=== PATIENT | male | born 1985 | race Caucasian/White ===

== ENCOUNTER 2016-08-31 15:14 | Inpatient (IN) | payer OTHER ==
[~2016-08-31] VITALS: Ht 182.9 cm; Wt 172.1 kg
--- NOTE | ~2016-08-31 | CON ---
[place], [place] REPORT OF CONSULTATION [id number] UN[facility] #: [id number] ROOM: 427 DOCTOR: ASHLEY GONZALEZ MD BIRTHDATE: [birth year] DOS: 09/01/2016 HISTORY OF PRESENT ILLNESS: The patient is a 30-year-old gentleman admitted under hospitalist service, seen at their request. The patient was admitted last night with a swelling on the right groin which was moderately painful; however, without any fever or without any throbbing pain. No history of a difficulty, no dysuria, no hematuria. The swelling in the right upper half of the scrotum is subcutaneous. Pain only during the time the patient is trying to get out of the bed or trying to walk. No such similar condition in the past. The patient not diabetic. PHYSICAL EXAMINATION: GENERAL: On examination, alert, oriented and not in any distress whatsoever. VITAL SIGNS: Stable. He is afebrile. LOCAL EXAMINATION: Show there is no swelling or edema of the scrotum; however, there is induration on the right upper portion of the scrotal wall, size approximately is 3-4 cm in greatest diameter. It is tender and there is a very small area less than a centimeter of slight softness but no fluctuation. The skin over this swelling is moderately indurated but not edematous or red or erythematous. The examination suggests the cellulitis with possibility of developing an abscess right at the center of the swelling. The both testes are normal. Digital exam is deferred. ASSESSMENT: Cellulitis, right hemiscrotum with the possibility of a subcutaneous abscess formation. PLAN: Advised to continue the antibiotics, IV fluids, warm compresses and the patient will be scheduled tomorrow for incision and drainage of possible abscess of the scrotal skin and scrotal wall. The patient will be kept n.p.o. after midnight and he is scheduled for a procedure in the morning. ASHLEY GONZALEZ MD CM:CONSTR:REPORT OF CONSULTATION 2136 09/02/16 0448 interface
[~2016-08-31 15:14] MED LIST: 'PARAFON FORTE500 M1 PO; ADDERALL XR 3030 MG PO; AMOXICILLIN500 M2 PO; AMOXICILLIN500 MG PO; AUGMENTIN 875875 MG PO; BACTRIM DS 8001 TA1 PO; CATAFLAM50 MG PO; CEPHALEXIN500 M1 PO; CIPRO250 MG PO; CIPRODEX 0.3%-7.5 ML OT; CLARITIN10 MG PO; DOXYCYCLINE100 M3 PO; FISH OIL EC 1,1 EACH PO; FLEXERIL10 MG PO; FLONASE 0.05% 121 EA NAS; GEMFIBROZIL600 MG PO; HYDROCODONE BIT1 T11 PO; KEFLEX500 MG PO; LISINOPRIL10 M1 PO; LISINOPRIL5 MG PO; LOMOTIL 0.025 M1 TA1 PO; LOPID600 M1 PO; METFORMIN HYDR500 M1 PO; METFORMIN500 MG PO; MIRAPEX PO; MOTRIN800 MG PO; NAPROSYN500 MG PO; NKHM; NORCO 325 MG-51 TAB PO; OMEPRAZOLE40 MG PO; PERCOCET 325 MG1 TA2 PO; PRAVACHOL40 MG PO; PREDNICOT20 MG PO; PROTONIX40 MG PO; PROVENTIL0.09 MG/A1 INH; PROZAC10 MG PO; RESTLESS LEG; ROBITUSSIN AC 110 ML PO; TOPROL XL25 MG PO; TORADOL10 MG PO; TRAZODONE100 MG PO; ULTRAM50 MG PO; VICODIN 5/500 505 MG PO; VITAMIN D50000 I3 PO; ZESTRIL5 MG PO; ZOFRAN ODT4 MG SL; ZOFRAN4 MG PO; ZOLOFT25 MG PO; ZYRTEC10 MG PO
[2016-08-31] MEDS ORDERED: METFORMIN1000 MG PO (15:25)
[2016-08-31] MEDS ORDERED: PROZAC10 MG PO (15:25)
[2016-08-31 15:26] VITALS: BP 102/58
[2016-08-31] MEDS ORDERED: PROTONIX TR40 M1 PO (15:26)
[2016-08-31 15:54] LABS: BASO # 0.1 10*3/uL (0.0-0.1); BASO % 0.7 % (0.0-1.0); EOS # 0.4 10*3/uL (0.0-0.4); EOS % 3.3 % (1.0-4.0); HEMATOCRIT 41.1 % (42.0-52.0); HEMOGLOBIN 13.8 g/dl (14.0-18.0); LYMPH # 1.8 10*3/uL (1.3-4.4); LYMPH % 16.6 % (27.0-41.0); MEAN CELL VOLUME 83.5 fl (80.0-94.0); MEAN CORPUSCULAR HGB CONC 33.6 g/dl (33.0-37.0); MEAN PLATELET VOLUME 9.2 fl (9.6-12.3); MONO # 0.9 10*3/uL (0.1-1.0); MONO % 7.9 % (3.0-9.0); NEUT # 7.8 10*3/uL (2.3-7.9); NEUT % 71.2 % (47.0-73.0); PLATELET COUNT AUTOMATED 250 10*3/uL (130-400); RED BLOOD COUNT 4.92 10*6/uL (4.50-5.90); RED CELL DISTRI WIDTH 13.4 % (0-14.5)
[2016-08-31 16:10] LABS: ALBUMIN 3.3 gm/dl (3.1-4.5); ALKALINE PHOSPHATASE 111 U/L (45-117); BILIRUBIN, TOTAL 0.4 mg/dl (0.2-1.0); BUN 10 mg/dl (7-24); CARBON DIOXIDE 24 mmol/L (21-32); CHLORIDE 104 mmol/L (98-107); EST GLOM FILT AFRICAN AMERICAN > 60 ml/min; GLUCOSE 308 mg/dL (65-99); POTASSIUM 3.9 mmol/L (3.5-5.1); SGOT/AST 27 IU/L (3-35); SGPT/ALT 47 U/L (12-78); SODIUM 137 mmol/L (136-145); TOTAL PROTEIN 7.3 gm/dL (6.4-8.2)
[2016-08-31 17:52] LABS: LA>2 REFLEX 2 HR DRAW NOW
[2016-08-31 18:04] LABS: LA>2 RFLX FOLLOW UP AT 2 HRS 2.3 mmol/L (0.4-2.0)
[2016-08-31 19:57] LABS: LA>2 REFLEX 4 HR DRAW NOW
[2016-08-31 20:42] VITALS: BP 140/72
[2016-08-31 21:50] VITALS: BP 154/68
[2016-08-31] MEDS ORDERED: MIRAPEX1 MG PO (22:03)
[2016-09-01] VITALS: BP 139/58; BP 139/78
[2016-09-01 00:28] LABS: CKMB 0.6 ng/ml (0.5-3.6); CPK 104 U/L (39-308)
[2016-09-01 00:30] LABS: TROPONIN I < 0.015 ng/ml (<0.045)
[2016-09-01 06:43] LABS: BASO # 0.1 10*3/uL (0.0-0.1); BASO % 0.8 % (0.0-1.0); EOS # 0.3 10*3/uL (0.0-0.4); HEMATOCRIT 35.8 % (42.0-52.0); LYMPH # 2.1 10*3/uL (1.3-4.4); LYMPH % 27.7 % (27.0-41.0); MEAN CELL VOLUME 83.6 fl (80.0-94.0); MEAN CORPUSCULAR HGB CONC 33.5 g/dl (33.0-37.0); MONO # 0.7 10*3/uL (0.1-1.0); NEUT # 4.4 10*3/uL (2.3-7.9); PLATELET COUNT AUTOMATED 201 10*3/uL (130-400); RED BLOOD COUNT 4.28 10*6/uL (4.50-5.90); RED CELL DISTRI WIDTH 13.3 % (0-14.5); WHITE BLOOD COUNT 7.6 10*3/uL (4.8-10.8)
[2016-09-01 06:51] LABS: CKMB 0.7 ng/ml (0.5-3.6); CPK 83 U/L (39-308)
[2016-09-01 06:53] LABS: TROPONIN I < 0.015 ng/ml (<0.045)
[2016-09-01 07:27] LABS: BUN 9 mg/dl (7-24); CARBON DIOXIDE 24 mmol/L (21-32); CHLORIDE 112 mmol/L (98-107); EST GLOM FILT AFRICAN AMERICAN > 60 ml/min; GLUCOSE 135 mg/dL (65-99); POTASSIUM 3.8 mmol/L (3.5-5.1); SODIUM 145 mmol/L (136-145)
[2016-09-01 08:00] VITALS: BP 151/101
[2016-09-01 12:00] VITALS: BP 137/79
[2016-09-01 12:26] LABS: CKMB 1.1 ng/ml (0.5-3.6); CPK 98 U/L (39-308)
[2016-09-01 12:29] LABS: TROPONIN I < 0.015 ng/ml (<0.045)
[2016-09-01 16:00] VITALS: BP 160/110
[2016-09-01 20:00] VITALS: BP 122/77
[2016-09-02] VITALS: BP 149/72
[2016-09-02 05:56] LABS: BASO % 0.4 % (0.0-1.0); EOS # 0.3 10*3/uL (0.0-0.4); EOS % 3.6 % (1.0-4.0); HEMATOCRIT 36.7 % (42.0-52.0); HEMOGLOBIN 12.5 g/dl (14.0-18.0); LYMPH # 1.7 10*3/uL (1.3-4.4); LYMPH % 18.7 % (27.0-41.0); MEAN CELL VOLUME 83.2 fl (80.0-94.0); MEAN CORPUSCULAR HGB 28.3 pg (27.0-31.0); MEAN CORPUSCULAR HGB CONC 34.1 g/dl (33.0-37.0); MEAN PLATELET VOLUME 8.9 fl (9.6-12.3); MONO # 0.7 10*3/uL (0.1-1.0); MONO % 7.8 % (3.0-9.0); NEUT # 6.4 10*3/uL (2.3-7.9); NEUT % 69.4 % (47.0-73.0); PLATELET COUNT AUTOMATED 223 10*3/uL (130-400); RED BLOOD COUNT 4.41 10*6/uL (4.50-5.90); RED CELL DISTRI WIDTH 13.2 % (0-14.5); WHITE BLOOD COUNT 9.2 10*3/uL (4.8-10.8)
[2016-09-02 06:21] LABS: PROTHROMBIN TIME 10.5 SECONDS (9.0-12.4)
[2016-09-02 07:26] VITALS: BP 139/78
[2016-09-02 08:00] VITALS: BP 132/81
[2016-09-02 12:00] VITALS: BP 147/83
[2016-09-02] MEDS ORDERED: BACTRIM DS 8001 TA1 PO (12:18)
== END 2016-09-02 14:45 | disposition home or self-care (01) | DRG 872 ==
LOC: ED 15:14 → EDHOLD 20:59 → 4E 20:59
PROVIDERS: Internal Medicine; Internal Medicine Hospice and Palliative Medicine; Physician Assistant
DX: A41.9 Sepsis, unspecified organism (principal); E87.2 Acidosis; E44.1 Mild protein-calorie malnutrition; Z68.43 Body mass index [BMI] 50.0-59.9, adult; E11.65 Type 2 diabetes mellitus with hyperglycemia; I10 Essential (primary) hypertension; R65.20 Severe sepsis without septic shock; N49.2 Inflammatory disorders of scrotum; I45.6 Pre-excitation syndrome; E66.01 Morbid (severe) obesity due to excess calories; E78.5 Hyperlipidemia, unspecified; E83.51 Hypocalcemia; E87.8 Other disorders of electrolyte and fluid balance, not elsewhere classified; D64.9 Anemia, unspecified; F17.200 Nicotine dependence, unspecified, uncomplicated; Z82.49 Family history of ischemic heart disease and other diseases of the circulatory system; Z79.51 Long term (current) use of inhaled steroids; Z79.84 Long term (current) use of oral hypoglycemic drugs; Z79.899 Other long term (current) drug therapy; Z83.3 Family history of diabetes mellitus; Z82.3 Family history of stroke; Z71.6 Tobacco abuse counseling

== ENCOUNTER 2016-09-10 10:20 | Emergency (ER) | payer OTHER ==
[~2016-09-10] VITALS: Ht 182.8 cm; Wt 169.6 kg
[~2016-09-10 10:20] MED LIST changes: +METFORMIN1000 MG PO; +MIRAPEX1 MG PO; +PROTONIX TR40 M1 PO
[2016-09-10 11:02] LABS: BASO # 0.1 10*3/uL (0.0-0.1); BASO % 0.6 % (0.0-1.0); EOS # 0.2 10*3/uL (0.0-0.4); EOS % 2.2 % (1.0-4.0); HEMATOCRIT 41.9 % (42.0-52.0); HEMOGLOBIN 14.5 g/dl (14.0-18.0); LYMPH # 1.7 10*3/uL (1.3-4.4); LYMPH % 17.9 % (27.0-41.0); MEAN CELL VOLUME 81.7 fl (80.0-94.0); MEAN CORPUSCULAR HGB 28.3 pg (27.0-31.0); MEAN CORPUSCULAR HGB CONC 34.6 g/dl (33.0-37.0); MEAN PLATELET VOLUME 8.9 fl (9.6-12.3); MONO # 0.7 10*3/uL (0.1-1.0); MONO % 7.2 % (3.0-9.0); NEUT # 6.7 10*3/uL (2.3-7.9); NEUT % 71.8 % (47.0-73.0); PLATELET COUNT AUTOMATED 290 10*3/uL (130-400); RED BLOOD COUNT 5.13 10*6/uL (4.50-5.90); RED CELL DISTRI WIDTH 13.7 % (0-14.5); WHITE BLOOD COUNT 9.3 10*3/uL (4.8-10.8)
[2016-09-10 11:12] LABS: BUN 11 mg/dl (7-24); CARBON DIOXIDE 21 mmol/L (21-32); CHLORIDE 102 mmol/L (98-107); EST GLOM FILT AFRICAN AMERICAN > 60 ml/min; GLUCOSE 228 mg/dL (65-99); SODIUM 134 mmol/L (136-145)
== END 2016-09-10 12:43 | disposition home or self-care (01) ==
LOC: ED 10:20
PROVIDERS: Emergency Medicine
DX: N50.89 Other specified disorders of the male genital organs (principal); N50.82 Scrotal pain; F17.200 Nicotine dependence, unspecified, uncomplicated; F12.10 Cannabis abuse, uncomplicated; I10 Essential (primary) hypertension; E78.5 Hyperlipidemia, unspecified; E11.9 Type 2 diabetes mellitus without complications

== ENCOUNTER 2016-09-12 13:02 | Emergency (ER) | payer OTHER ==
[~2016-09-12] VITALS: Wt 169.6 kg
[2016-09-12 14:09] LABS: BASO # 0.1 10*3/uL (0.0-0.1); BASO % 0.6 % (0.0-1.0); EOS # 0.2 10*3/uL (0.0-0.4); EOS % 1.9 % (1.0-4.0); HEMATOCRIT 41.5 % (42.0-52.0); HEMOGLOBIN 14.3 g/dl (14.0-18.0); IG # 0.1 10*3/uL (0.0-0.1); LYMPH # 1.8 10*3/uL (1.3-4.4); LYMPH % 15.4 % (27.0-41.0); MEAN CELL VOLUME 82.5 fl (80.0-94.0); MEAN CORPUSCULAR HGB 28.4 pg (27.0-31.0); MEAN CORPUSCULAR HGB CONC 34.5 g/dl (33.0-37.0); MEAN PLATELET VOLUME 9.2 fl (9.6-12.3); MONO # 0.9 10*3/uL (0.1-1.0); MONO % 7.2 % (3.0-9.0); NEUT # 8.9 10*3/uL (2.3-7.9); NEUT % 74.5 % (47.0-73.0); PLATELET COUNT AUTOMATED 283 10*3/uL (130-400); RED BLOOD COUNT 5.03 10*6/uL (4.50-5.90); RED CELL DISTRI WIDTH 13.6 % (0-14.5); WHITE BLOOD COUNT 11.9 10*3/uL (4.8-10.8)
[2016-09-12 14:24] LABS: ALBUMIN 3.6 gm/dl (3.1-4.5); BILIRUBIN, TOTAL 0.3 mg/dl (0.2-1.0); BUN 10 mg/dl (7-24); CARBON DIOXIDE 26 mmol/L (21-32); CHLORIDE 100 mmol/L (98-107); EST GLOM FILT AFRICAN AMERICAN > 60 ml/min; GLUCOSE 222 mg/dL (65-99); POTASSIUM 4.1 mmol/L (3.5-5.1); SGOT/AST 28 IU/L (3-35); SGPT/ALT 41 U/L (12-78); SODIUM 135 mmol/L (136-145); TOTAL PROTEIN 8.2 gm/dL (6.4-8.2)
[2016-09-12 14:40] LABS: ALKALINE PHOSPHATASE 124 U/L (45-117)
== END 2016-09-12 21:38 | disposition short-term general hospital (02) ==
LOC: ED 13:02
PROVIDERS: Nurse Practitioner Family
DX: A41.9 Sepsis, unspecified organism (principal); N49.2 Inflammatory disorders of scrotum; R73.9 Hyperglycemia, unspecified; I10 Essential (primary) hypertension; E11.9 Type 2 diabetes mellitus without complications; F17.200 Nicotine dependence, unspecified, uncomplicated; E78.5 Hyperlipidemia, unspecified; Z79.899 Other long term (current) drug therapy

== ENCOUNTER 2016-10-22 00:09 | Emergency (ER) | payer OTHER ==
[~2016-10-22] VITALS: Ht 182.8 cm; Wt 169.6 kg
[2016-10-22 01:32] LABS: BASO # 0.1 10*3/uL (0.0-0.1); BASO % 0.5 % (0.0-1.0); EOS # 0.2 10*3/uL (0.0-0.4); EOS % 1.7 % (1.0-4.0); HEMATOCRIT 38.2 % (42.0-52.0); LYMPH # 1.9 10*3/uL (1.3-4.4); MEAN CELL VOLUME 82.9 fl (80.0-94.0); MEAN CORPUSCULAR HGB 28.2 pg (27.0-31.0); MEAN PLATELET VOLUME 9.2 fl (9.6-12.3); MONO # 0.8 10*3/uL (0.1-1.0); MONO % 7.6 % (3.0-9.0); NEUT # 7.6 10*3/uL (2.3-7.9); PLATELET COUNT AUTOMATED 291 10*3/uL (130-400); RED BLOOD COUNT 4.61 10*6/uL (4.50-5.90); RED CELL DISTRI WIDTH 13.5 % (0-14.5); WHITE BLOOD COUNT 10.6 10*3/uL (4.8-10.8)
[2016-10-22 01:43] LABS: BUN 8 mg/dl (7-24); C-REACTIVE PROTEIN 4.03 MG/DL (0-0.3); CARBON DIOXIDE 27 mmol/L (21-32); CHLORIDE 103 mmol/L (98-107); EST GLOM FILT AFRICAN AMERICAN > 60 ml/min; GLUCOSE 229 mg/dL (65-99); POTASSIUM 3.7 mmol/L (3.5-5.1); SODIUM 139 mmol/L (136-145)
[2016-10-22 02:22] LABS: BILIRUBIN NEGATIVE (NEGATIVE); BLOOD TRACE-LYSED (NEGATIVE); CLARITY CLEAR (CLEAR); COLOR YELLOW (YELLOW); GLUCOSE 1+ (NEGATIVE); KETONE NEGATIVE (NEGATIVE); LEUKO ESTERASE NEGATIVE (NEGATIVE); NITRITE NEGATIVE (NEGATIVE); PH 5.5 (5.0-9.0); PROTEIN 2+ (NEGATIVE); UROBILINOGEN 0.2 E.U./dl (0.2-1.0)
[2016-10-22 02:35] LABS: BACTERIA 1+; EPITHELIAL CELLS 0-2; URINE REFLEX COMMENT NO (NO); WBC 0-2 wbc/hpf (0-5)
[2016-10-22 03:29] LABS: LA>2 REFLEX 2 HR DRAW NOW
== END 2016-10-22 03:50 | disposition short-term general hospital (02) ==
LOC: ED 00:09
PROVIDERS: Emergency Medicine Emergency Medical Services
DX: A41.9 Sepsis, unspecified organism (principal); E13.8 Other specified diabetes mellitus with unspecified complications; R82.71 Bacteriuria; N49.2 Inflammatory disorders of scrotum; E87.2 Acidosis; E78.5 Hyperlipidemia, unspecified; I10 Essential (primary) hypertension; F17.200 Nicotine dependence, unspecified, uncomplicated; Z79.899 Other long term (current) drug therapy

== ENCOUNTER → 2016-11-18 | Outpatient (CLI) | payer OTHER | END | disposition home or self-care (01) | LOC: RAD 12:26 | DX: M51.37 Other intervertebral disc degeneration, lumbosacral region (principal) ==

== ENCOUNTER 2017-05-15 08:28 | Emergency (ER) | payer OTHER ==
[~2017-05-15] VITALS: Wt 163.3 kg
[2017-05-15] MEDS ORDERED: AMOXICILLIN500 M2 PO (09:50)
== END 2017-05-15 10:40 | disposition home or self-care (01) ==
LOC: ED 08:28
DX: J02.0 Streptococcal pharyngitis (principal); F17.200 Nicotine dependence, unspecified, uncomplicated; F12.10 Cannabis abuse, uncomplicated; E78.5 Hyperlipidemia, unspecified; E66.01 Morbid (severe) obesity due to excess calories; E11.65 Type 2 diabetes mellitus with hyperglycemia; Z79.899 Other long term (current) drug therapy

== ENCOUNTER 2017-06-26 19:22 | Emergency (ER) | payer OTHER ==
[~2017-06-26] VITALS: Ht 182.8 cm; Wt 157.9 kg
[2017-06-26] MEDS ORDERED: Motrin,Rufen800 MG PO (20:17)
[2017-06-26] MEDS ORDERED: CLINDAMYCIN HC300 MG PO (20:17)
== END 2017-06-26 20:49 | disposition home or self-care (01) ==
LOC: ED 19:22
DX: K04.01 Reversible pulpitis (principal); K02.9 Dental caries, unspecified; E11.65 Type 2 diabetes mellitus with hyperglycemia; E66.01 Morbid (severe) obesity due to excess calories; I10 Essential (primary) hypertension; E78.00 Pure hypercholesterolemia, unspecified; F12.10 Cannabis abuse, uncomplicated; F17.200 Nicotine dependence, unspecified, uncomplicated; Z79.899 Other long term (current) drug therapy; Z98.890 Other specified postprocedural states

== ENCOUNTER 2017-09-02 12:41 | Emergency (ER) | payer OTHER ==
[~2017-09-02] VITALS: Ht 182.8 cm; Wt 157.4 kg
[~2017-09-02 12:41] MED LIST changes: +CLINDAMYCIN HC300 MG PO; +Motrin,Rufen800 MG PO
== END 2017-09-02 13:31 | disposition home or self-care (01) ==
LOC: ED 12:41
DX: S05.02XA Injury of conjunctiva and corneal abrasion without foreign body, left eye, initial encounter (principal); H10.9 Unspecified conjunctivitis; F17.200 Nicotine dependence, unspecified, uncomplicated; F12.10 Cannabis abuse, uncomplicated; Z98.890 Other specified postprocedural states; Z79.899 Other long term (current) drug therapy; X58.XXXA Exposure to other specified factors, initial encounter; Y93.89 Activity, other specified; Y92.89 Other specified places as the place of occurrence of the external cause; Y99.9 Unspecified external cause status

== ENCOUNTER 2017-10-13 17:34 | Emergency (ER) | payer OTHER ==
[~2017-10-13] VITALS: Ht 182.8 cm; Wt 99.8 kg
[2017-10-13] MEDS ORDERED: MEDROL DOSEPAK4 MG PO (19:23)
[2017-10-13] MEDS ORDERED: CYCLOBENZAPRINE10 MG PO (19:23)
[2017-10-13] MEDS ORDERED: NAPROSYN500 MG PO (19:23)
== END 2017-10-13 19:31 | disposition home or self-care (01) ==
LOC: ED 17:34
DX: S39.012A Strain of muscle, fascia and tendon of lower back, initial encounter (principal); F12.10 Cannabis abuse, uncomplicated; F17.200 Nicotine dependence, unspecified, uncomplicated; Z79.899 Other long term (current) drug therapy; X50.1XXA Overexertion from prolonged static or awkward postures, initial encounter; Y93.89 Activity, other specified; Y92.89 Other specified places as the place of occurrence of the external cause; Y99.9 Unspecified external cause status

== ENCOUNTER 2018-02-09 18:05 | Emergency (ER) | payer OTHER ==
[~2018-02-09] VITALS: Ht 182.8 cm; Wt 160.6 kg
--- NOTE | ~2018-02-09 | EKG ---
[place], [place] ELECTROCARDIOGRAM REPORT NAME: JESSICA HUNTER UNIT #: [id number] ROOM: DOCTOR: EPIPHANY DRAFT REPORT BIRTHDATE: [birth year] [facility] Test Date: 2018-02-09 Test Time: 18:58:16 Pat Name: JESSICA HUNTER Department: Room: Gender: M [employer] Work[employer]: DANA : 1985 Requested By: MONIKA WOOD PA-C Order Number: [id number] Reading MD: Manan Ledesma MD Measurements Intervals [place] Rate: 95 P: 30 NM: 173 QRS: 55 QRSD: 92 T: -76 QT: 347 QTc: 436 Interpretive Statements Sinus rhythm Borderline T abnormalities, diffuse leads No previous ECG available for comparison Electronically Signed On 02-11-2018 4:22:15 PDT by Manan Ledesma MD CM:EKGRPT:ELECTROCARDIOGRAM REPORT [id number] MONIKA WOOD PA-C EPIPHANY DRAFT REPORT MOINKA WOOD PA-C
[~2018-02-09 18:05] MED LIST changes: +CYCLOBENZAPRINE10 MG PO; +MEDROL DOSEPAK4 MG PO
[2018-02-09 19:02] LABS: BASO # 0.1 10*3/uL (0.0-0.1); EOS # 0.3 10*3/uL (0.0-0.4); EOS % 2.8 % (1.0-4.0); HEMATOCRIT 41.7 % (42.0-52.0); HEMOGLOBIN 14.7 g/dl (14.0-18.0); LYMPH # 2.3 10*3/uL (1.3-4.4); LYMPH % 23.9 % (27.0-41.0); MEAN CELL VOLUME 84.4 fl (80.0-94.0); MEAN CORPUSCULAR HGB 29.8 pg (27.0-31.0); MEAN CORPUSCULAR HGB CONC 35.3 g/dl (33.0-37.0); MEAN PLATELET VOLUME 9.1 fl (9.6-12.3); MONO # 0.8 10*3/uL (0.1-1.0); MONO % 8.6 % (3.0-9.0); NEUT % 63.5 % (47.0-73.0); PLATELET COUNT AUTOMATED 287 10*3/uL (130-400); RED BLOOD COUNT 4.94 10*6/uL (4.50-5.90); RED CELL DISTRI WIDTH 12.7 % (0-14.5); WHITE BLOOD COUNT 9.4 10*3/uL (4.8-10.8)
[2018-02-09 19:11] LABS: INTERNATIONAL NORM RATIO 0.9 (2.0-3.5)
[2018-02-09 19:20] LABS: ALBUMIN 3.4 gm/dl (3.1-4.5); ALKALINE PHOSPHATASE 110 U/L (45-117); BUN 18 mg/dl (7-24); CHLORIDE 104 mmol/L (98-107); CREATININE 1.03 mg/dL (0.70-1.30); LIPASE 239 U/L (73-393); SGOT/AST 33 IU/L (3-35); SGPT/ALT 51 U/L (12-78); SODIUM 139 mmol/L (136-145); TOTAL PROTEIN 7.5 gm/dL (6.4-8.2)
[2018-02-09 19:23] LABS: TROPONIN I < 0.015 ng/ml (<0.045)
== END 2018-02-09 20:27 | disposition home or self-care (01) ==
LOC: ED 18:05
PROVIDERS: Physician Assistant
DX: S93.402A Sprain of unspecified ligament of left ankle, initial encounter (principal); R55 Syncope and collapse; R42 Dizziness and giddiness; M25.562 Pain in left knee; F17.200 Nicotine dependence, unspecified, uncomplicated; Z79.899 Other long term (current) drug therapy; X58.XXXA Exposure to other specified factors, initial encounter; Y93.89 Activity, other specified; Y92.89 Other specified places as the place of occurrence of the external cause; Y99.8 Other external cause status

== ENCOUNTER 2019-12-13 21:14 | Emergency (ER) | payer OTHER ==
[~2019-12-13] VITALS: Ht 182.8 cm; Wt 167.8 kg
[2019-12-13 22:53] LABS: BASO # 0.1 10*3/uL (0.0-0.1); BASO % 0.6 % (0.0-1.0); EOS # 0.2 10*3/uL (0.0-0.4); EOS % 2.2 % (1.0-4.0); HEMATOCRIT 44.7 % (42.0-52.0); LYMPH # 0.9 10*3/uL (1.3-4.4); LYMPH % 11.8 % (27.0-41.0); MEAN CELL VOLUME 82.6 fl (80.0-94.0); MEAN CORPUSCULAR HGB 28.1 pg (27.0-31.0); MEAN PLATELET VOLUME 8.9 fl (9.6-12.3); MONO # 0.7 10*3/uL (0.1-1.0); MONO % 8.5 % (3.0-9.0); NEUT % 76.5 % (47.0-73.0); PLATELET COUNT AUTOMATED 256 10*3/uL (130-400); RED BLOOD COUNT 5.41 10*6/uL (4.50-5.90); RED CELL DISTRI WIDTH 13.4 % (0-14.5); WHITE BLOOD COUNT 7.8 10*3/uL (4.8-10.8)
[2019-12-13 23:09] LABS: ALBUMIN 3.5 gm/dl (3.1-4.5); ALKALINE PHOSPHATASE 109 U/L (45-117); BUN 13 mg/dl (7-24); CHLORIDE 104 mmol/L (98-107); CREATININE 1.07 mg/dL (0.70-1.30); POTASSIUM 3.7 mmol/L (3.5-5.1); SGOT/AST 39 IU/L (3-35); SGPT/ALT 51 U/L (12-78); SODIUM 134 mmol/L (136-145); TOTAL PROTEIN 7.5 gm/dL (6.4-8.2)
[2019-12-14] MEDS ORDERED: DOXYCYCLINE100 M3 PO (01:18)
== END 2019-12-14 01:36 | disposition home or self-care (01) ==
LOC: ED 21:14
PROVIDERS: Nurse Practitioner Family
DX: J45.909 Unspecified asthma, uncomplicated (principal); J32.9 Chronic sinusitis, unspecified; E78.5 Hyperlipidemia, unspecified; I10 Essential (primary) hypertension; E66.01 Morbid (severe) obesity due to excess calories; E11.9 Type 2 diabetes mellitus without complications; E78.00 Pure hypercholesterolemia, unspecified; F17.200 Nicotine dependence, unspecified, uncomplicated; Z79.899 Other long term (current) drug therapy

== ENCOUNTER 2020-01-10 18:01 | Emergency (ER) | payer OTHER ==
[~2020-01-10] VITALS: Ht 182.8 cm; Wt 163.3 kg
[2020-01-10 19:49] LABS: BASO # 0.1 10*3/uL (0.0-0.1); BASO % 0.5 % (0.0-1.0); EOS # 0.2 10*3/uL (0.0-0.4); HEMATOCRIT 45.8 % (42.0-52.0); LYMPH # 1.8 10*3/uL (1.3-4.4); LYMPH % 15.8 % (27.0-41.0); MEAN CORPUSCULAR HGB 28.6 pg (27.0-31.0); MEAN CORPUSCULAR HGB CONC 34.1 g/dl (33.0-37.0); MEAN PLATELET VOLUME 10.4 fl (9.6-12.3); MONO # 0.9 10*3/uL (0.1-1.0); MONO % 7.7 % (3.0-9.0); NEUT # 8.2 10*3/uL (2.3-7.9); NEUT % 73.6 % (47.0-73.0); PLATELET COUNT AUTOMATED 347 10*3/uL (130-400); RED BLOOD COUNT 5.45 10*6/uL (4.50-5.90); RED CELL DISTRI WIDTH 14.5 % (0-14.5); WHITE BLOOD COUNT 11.1 10*3/uL (4.8-10.8)
[2020-01-10 20:27] LABS: ALBUMIN 3.5 gm/dl (3.1-4.5); ALKALINE PHOSPHATASE 101 U/L (45-117); BUN 13 mg/dl (7-24); CHLORIDE 103 mmol/L (98-107); CREATININE 0.78 mg/dL (0.70-1.30); SGOT/AST 23 IU/L (3-35); SGPT/ALT 40 U/L (12-78); SODIUM 134 mmol/L (136-145); TOTAL PROTEIN 7.8 gm/dL (6.4-8.2)
== END 2020-01-10 22:46 | disposition short-term general hospital (02) ==
LOC: ED 18:01
PROVIDERS: Physician Assistant
DX: N49.2 Inflammatory disorders of scrotum (principal); Z79.899 Other long term (current) drug therapy

== ENCOUNTER 2020-05-07 12:46 | Emergency (ER) | payer SELFPAY ==
[~2020-05-07] VITALS: Ht 182.8 cm; Wt 165.6 kg
== END 2020-05-07 13:21 | disposition home or self-care (01) ==
LOC: ED 12:46
DX: H00.015 Hordeolum externum left lower eyelid (principal); I10 Essential (primary) hypertension; F32.9 Major depressive disorder, single episode, unspecified; E78.00 Pure hypercholesterolemia, unspecified; E11.9 Type 2 diabetes mellitus without complications; J45.909 Unspecified asthma, uncomplicated; Z79.2 Long term (current) use of antibiotics; Z79.899 Other long term (current) drug therapy